=== PATIENT | male | born 1960 | race Caucasian/White ===

== ENCOUNTER 2016-11-14 18:32 | Emergency (ER) | payer OTHER ==
[2016-11-14 18:52] VITALS: BP 148/93
[2016-11-14] MEDS ORDERED: Fluorescein Sodium TOPICAL* 1 MG TEST ONE (19:13)
[2016-11-14] MEDS ORDERED: BSS OPTH.SOL* BTL ONE (19:14)
[2016-11-14] MEDS ORDERED: Proparacaine 0.5% OPHTH.SOL* 15 ML BTL ONE (19:14)
[2016-11-14] MEDS ORDERED: Polymyx/Trimethoprim OPTH* 10 ML BTL LEFT EYE ONE (20:13)
--- NOTE | 2016-11-14 20:31 | UC ---
Eye Complaint HPI - HPI Summary HPI Summary: patient thinks he got a piece of metal in his eye on , has had constant pain and irritation. eye is red, denies any purulent drainage, just tearing - History of Current Complaint Chief Complaint: UCEye Stated Complaint: RIGHT EYE COMPLAINT Time Seen by Provider: 11/14/16 20:13 Hx Obtained From: Patient Onset/Duration: Sudden Onset, Lasting Days Timing: Constant Severity Initially: Mild Severity Currently: Mild Pain Intensity: 0 Pain Scale Used: 0-10 Numeric Location of Injury: Conjunctiva, Eye Lid (upper), Sclera Character: Foreign Body Sensation Aggravating Factor(s): Light, Blinking Alleviating Factor(s): Nothing Associated Signs And Symptoms: Positive: Drainage (Clear) - Allergies/Home Medications Allergies/Adverse Reactions: Allergies Allergy/AdvReac Type Severity Reaction Status Date / Time Penicillins [PCN] AdvReac Diarrhea Verified 11/14/16 18:52 Home Medications: Home Medications Insulin GLARGINE(*) [Lantus(*)] 40 units SUBCUT DAILY 11/14/16 [History Confirmed 11/14/16] Liraglutide [Victoza] 11/14/16 [History Confirmed 11/14/16] traMADol TAB* [Ultram*] PRN 11/14/16 [History] PMH/Surg Hx/FS Hx/Imm Hx Previously Healthy: Yes Endocrine History Of: Reports: Diabetes - TYPE II - CURRENTLY ON ORAL MEDS Cardiovascular History Of: Reports: Hypertension - ON MEDICATION FOR Psychological History Of: Reports: Anxiety - STATES HX OF MOST OF LIFE, Depression - Surgical History Surgical History: Yes Surgery Procedure, Year, and Place: APPENDECTOMY, BACK SURGERY 2013 - Family History Known Family History: Negative: Hypertension - Social History Alcohol Use: None Substance Use Type: None Smoking Status (MU): Current Every Day Smoker Amount Used/How Often: 1/2 PPD - Immunization History Most Recent Influenza Vaccination: 2012 Most Recent Tetanus Shot: unk Most Recent Pneumonia Vaccination: 2010 Review of Systems Constitutional: Negative Skin: Negative Eyes: Drainage, Eye Redness, Photophobia ENT: Negative Respiratory: Negative Cardiovascular: Negative Gastrointestinal: Negative Genitourinary: Negative Motor: Negative Neurovascular: Negative Musculoskeletal: Negative Neurological: Negative Psychological: Negative All Other Systems Reviewed And Are Negative: Yes Physical Exam Triage Information Reviewed: Yes Appearance: Well-Nourished, Ill-Appearing, Pain Distress Vital Signs: Initial Vital Signs Temp 98 F 11/14/16 18:48 Pulse 82 11/14/16 18:48 Resp 16 11/14/16 18:48 BP 148/93 11/14/16 18:48 Pulse Ox 100 11/14/16 18:48 Vital Signs Reviewed: Yes Eye Exam: Normal Eyes: Positive: Conjunctiva Inflamed, Other: - sclera red and irritated, visible metal piece on cornea ENT Exam: Normal ENT: Positive: Hearing grossly normal, Pharynx normal, TMs normal Dental Exam: Normal Neck exam: Normal Neck: Positive: Supple, Nontender, No Lymphadenopathy Respiratory Exam: Normal Respiratory: Positive: Chest non-tender, Lungs clear, Normal breath sounds Cardiovascular Exam: Normal Cardiovascular: Positive: RRR, No Murmur, Pulses Normal Abdominal Exam: Normal Abdomen Description: Positive: Nontender, No Organomegaly, Soft Bowel Sounds: Positive: Present Musculoskeletal Exam: Normal Musculoskeletal: Positive: Strength Intact, ROM Intact, No Edema Neurological Exam: Normal Neurological: Positive: Alert, Muscle Tone Normal Psychological Exam: Normal Skin Exam: Normal Eye Complaint Course/Dx - Course Course Of Treatment: hx obtianed, exam performed, propocaine given 2 gtts, flushed with saline without good results, metal still in place, consulted with Dr fox who attempted to remove, see her note, eye patch placed, poly/trim drops dispenced and referred to Dr rosa to be seen tomorrow. - Differential Dx/Diagnosis Differential Diagnosis/HQI/PQRI: Conjunctivitis, Foreign Body, Periorbital Cellulitis, Orbital Cellulitis Provider Diagnoses: FB in right eye Discharge - Discharge Plan Condition: Stable Disposition: HOME Patient Education Materials: Eye Foreign Body (ED) Referrals: Ester HAWKINS,Estefania [Primary Care Provider] - Fuad Rosa MD [Medical Doctor] - Additional Instructions: use the eye drops every 3 hours while awake, Follow up with Dr Gray office in the morning.
== END 2016-11-14 20:21 | disposition home or self-care (01) ==
LOC: UCEAST 18:32
DX: T15.01XA Foreign body in cornea, right eye, initial encounter (principal); X58.XXXA Exposure to other specified factors, initial encounter; Y93.9 Activity, unspecified; Y92.9 Unspecified place or not applicable; E11.9 Type 2 diabetes mellitus without complications; Z79.84 Long term (current) use of oral hypoglycemic drugs; I10 Essential (primary) hypertension; Z88.0 Allergy status to penicillin; F17.210 Nicotine dependence, cigarettes, uncomplicated
CPT/HCPCS: 99212; A9270-GY; G0463

== ENCOUNTER 2017-03-21 15:56 | Emergency (ER) | payer OTHER ==
[2017-03-21 16:04] VITALS: BP 160/103
[2017-03-21] MEDS ORDERED: BSS OPTH.SOL* BTL ONE (16:24)
[2017-03-21] MEDS ORDERED: Tetracaine 0.5% OPTH.SOL 15ML* BTL ONE (16:24)
[2017-03-21] MEDS ORDERED: Fluorescein Sodium TOPICAL* 1 MG TEST ONE (16:24)
--- NOTE | 2017-03-21 17:57 | UC ---
Eye Complaint HPI - HPI Summary HPI Summary: WAS WORKING UNDER A CAR TODAY AROUND 12:30PM WHEN HE FELT SOMETHING GO IN HIS LEFT EYE. FLUSHED OUT WITH WATER BUT STILL FEELS LIKE SOMETHING IS STUCK IN HIS EYE. SOME REDNESS. NO VISUAL DISTURBANCE OR DRAINAGE. NO NAUSEA OR SENSITIVITY TO LIGHT. - History of Current Complaint Chief Complaint: UCEye Stated Complaint: FOREIGN BODY IN EYE Time Seen by Provider: 03/21/17 17:23 Hx Obtained From: Patient Onset/Duration: Sudden Onset, Lasting Hours, Still Present Timing: Constant Severity Initially: Moderate Severity Currently: Moderate Pain Intensity: 5 Pain Scale Used: 0-10 Numeric Location of Injury: Conjunctiva - LEFT Character: Foreign Body Sensation Aggravating Factor(s): Blinking Alleviating Factor(s): Nothing Associated Signs And Symptoms: Negative: Photophobia, Drainage (Clear), Drainage (Purulent), Vision Impairment Bilateral, Vision Impairment Right, Vision Impairment Left, Fever, Swelling - Allergies/Home Medications Allergies/Adverse Reactions: Allergies Allergy/AdvReac Type Severity Reaction Status Date / Time Penicillins [PCN] AdvReac Diarrhea Verified 03/21/17 16:04 PMH/Surg Hx/FS Hx/Imm Hx Endocrine History Of: Reports: Diabetes - TYPE II - CURRENTLY ON ORAL MEDS Denies: Thyroid Disease Cardiovascular History Of: Reports: Hypertension - ON MEDICATION FOR Denies: Cardiac Disorders Respiratory History Of: Denies: COPD, Asthma GI/ History Of: Denies: Ulcer Psychological History Of: Reports: Anxiety - STATES HX OF MOST OF LIFE, Depression - Surgical History Surgical History: Yes Surgery Procedure, Year, and Place: APPENDECTOMY, BACK SURGERY 2013 - Family History Known Family History: Positive: Hypertension - Social History Alcohol Use: None Substance Use Type: None Smoking Status (MU): Current Every Day Smoker Amount Used/How Often: 1/2 PPD - Immunization History Most Recent Influenza Vaccination: 2012 Most Recent Tetanus Shot: unk Most Recent Pneumonia Vaccination: 2010 Review of Systems Constitutional: Negative Skin: Negative Eyes: Eye Redness, Other - FB SENSATION Respiratory: Negative Cardiovascular: Negative Gastrointestinal: Negative All Other Systems Reviewed And Are Negative: Yes Physical Exam Triage Information Reviewed: Yes Appearance: Well-Appearing, No Pain Distress, Well-Nourished Vital Signs: Initial Vital Signs Temp 97.7 F 03/21/17 16:00 Pulse 69 03/21/17 16:00 Resp 16 03/21/17 16:00 BP 160/103 03/21/17 16:00 Pulse Ox 100 03/21/17 16:00 Eyes: Positive: Conjunctiva Inflamed - LEFT, Other: - FLUORESCEIN UPTAKE LEFT CORNEAL 4 O'CLOCK Neck: Positive: Supple Respiratory: Positive: No respiratory distress, No accessory muscle use Cardiovascular: Positive: Pulses Normal Abdomen Description: Positive: Soft Musculoskeletal: Positive: No Edema Neurological: Positive: Alert Psychological: Positive: Normal Response To Family, Age Appropriate Behavior Skin: Negative: rashes Eye Complaint Course/Dx - Differential Dx/Diagnosis Provider Diagnoses: LEFT EYE CORNEAL ABRASION Discharge - Discharge Plan Condition: Stable Disposition: HOME Prescriptions: Ciprofloxacin 0.3% OPTH.NIKKIE* [Cipro 0.3% Opth*] 1 drop LEFT EYE Q4H #1 btl Patient Education Materials: Corneal Abrasion (ED) Referrals: Estefania Alas RN [Primary Care Provider] - If Needed Shakeel Dumas MD [Medical Doctor] - If Needed Fuad Seals MD [Medical Doctor] - If Needed Additional Instructions: USE THE DROPS UNTIL YOU ARE SYMPTOM FREE FOR 24 HRS. IF YOUR SYMPTOMS PERSIST FOR MORE THAN 3-4 DAYS FOLLOW-UP WITH AN EYE DOCTOR.
== END 2017-03-21 17:56 | disposition home or self-care (01) ==
LOC: UCEAST 15:56
DX: S05.02XA Injury of conjunctiva and corneal abrasion without foreign body, left eye, initial encounter (principal); X58.XXXA Exposure to other specified factors, initial encounter; Y92.9 Unspecified place or not applicable; F17.210 Nicotine dependence, cigarettes, uncomplicated; Z88.0 Allergy status to penicillin; E11.8 Type 2 diabetes mellitus with unspecified complications; Z79.84 Long term (current) use of oral hypoglycemic drugs
CPT/HCPCS: 99212; A9270-GY; G0463

== ENCOUNTER 2018-12-18 09:19 | Emergency (ER) | payer OTHER ==
[2018-12-18 10:57] VITALS: BP 150/80
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
[2018-12-18] MEDS ORDERED: Mupirocin 2% OINT* TUBE TOPICAL ONE (11:38)
[2018-12-18] MEDS ORDERED: Hydrocortisone 1% CREAM* 30 GM TUBE TOPICAL ONE (11:39)
== END 2018-12-18 12:02 | disposition home or self-care (01) ==
LOC: UCEAST 09:19
DX: E11.621 Type 2 diabetes mellitus with foot ulcer (principal); L97.519 Non-pressure chronic ulcer of other part of right foot with unspecified severity; F17.210 Nicotine dependence, cigarettes, uncomplicated; Z88.0 Allergy status to penicillin
CPT/HCPCS: 99213; A9270-GY; G0463